=== PATIENT | male | born 1940 | race Caucasian/White ===

== ENCOUNTER 2024-09-10 10:27 | Emergency (ER) | payer MEDICARE, OTHER, SELFPAY ==
[2024-09-10 10:33] VITALS: BP 157/97
--- NOTE | 2024-09-10 10:41 | ED.GENMED ---
History of Present Illness
General
Chief Complaint: Crisis Evaluation
Time Seen by Provider: 09/10/24 10:41
History of Present Illness
History of Present Illness:
TIME OF INITIAL ENCOUNTER: 10:50 AM
HPI: Patient came in by [facility] ambulance from [facility]. There was report of suicidal ideation however the patient cannot clearly give me any meaningful history. As I am in the room all he wants to talk about is 'what is wrong with my
back?'. At times he has unintelligible speech. He also spat on himself while in the room. He reportedly has a history of schizoaffective disorder bipolar disorder.
EXAM:
GENERAL: The patient appears generally weak and somewhat disheveled
HEENT: Moist oral mucosa
CARDIOVASCULAR: No murmurs, normal heart rate, regular rhythm, No chest wall tenderness
PULMONARY: No respiratory distress, breath sounds are clear and equal
ABDOMEN: Soft with no peritoneal signs, no tenderness
NEUROLOGIC: Fair strength all extremities, no coordination deficits
PSYCHIATRIC: Bizarre affect, unintelligible speech at times, tangential thoughts
EXTREMITIES: Nontender, no edema, moves all extremities equally
SKIN: Some unroofed scabs noted to the upper back
NUMBER AND COMPLEXITY OF PROBLEMS ADDRESSED AT THE ENCOUNTER
� Chronic conditions affecting care: A-fib, high blood pressure, bipolar disorder, PTSD, schizoaffective disorder
� Acute Exacerbation and/or Progression of Chronic Illness: The timing of the symptoms of this presentation is unclear
� Differential Diagnosis includes: Possible suicidal ideation, exacerbation of/progression of mental illness
AMOUNT AND/OR COMPLEXITY OF DATA TO BE REVIEWED AND ANALYZED
� I performed an independent evaluation of and my interpretation is:
EKG:
CT:
X-rays:
Laboratory Studies: CBC and chemistry relatively unremarkable
Other:
� Review of other/old records: No old records available for review in [facility]
� Clinical information was obtained by an independent historian: Reviewed EMS report which shows the patient had relatively unremarkable vital signs with exception of mild hypertension
� Prescriptions/Medications Considered but not given:
� Further testing considered but not performed:
RISK OF COMPLICATIONS AND/OR MORBIDITY OR MORTALITY OF PATIENT MANAGEMENT
� Social determinants of health affecting care: Resides at [facility]
� Discussion with other providers: I spoke to crisis who spoke to [facility] who initially indicated the patient is near baseline. Crisis is still awaiting to hear back from nursing consultant at [facility].
� Escalation of care including admission/observation vs risk of discharge considered: The patient reportedly is near his baseline mental status. Labs unremarkable. He does not necessarily appear to be a threat to himself or
others.
ANY OTHER UPDATES:
2 PM: Crisis unable to reach [facility] any further for any additional conversation. The patient reportedly is near his baseline mental status. Planning to discharge back to [facility].
Phy Exam
Physical Exam
Physical Exam:
See HPI
Course
Orders/Labs/Results
Orders:
Orders
09/10/24 10:42
1:1 Observation - Suicide/ Violent Behavior As Directed
Crisis Consult Urgent
Reason for Consult: SI
09/10/24 11:21
ED Special Safety Observation ONCE
Observation level: One to Two
09/10/24 12:04
Basic Metabolic Panel Urgent
Complete Blood Count/With Diff Urgent
09/10/24 18:57
Olanzapine [Zyprexa] 2.5 mg PO NOW STA
Abnormal Lab Results
09/10/24
12:04
WBC 3.5 L 10^3/uL
(4.8-10.8)
RBC 3.84 L 10^6/uL
(4.70-6.10)
Hgb 11.0 L g/dL
(13.0-18.0)
Hct 34.7 L %
(39.0-52.0)
MCHC 31.7 L g/dL
(33.0-37.0)
RDW 16.4 H %
(11.5-14.5)
MPV 11.6 H fL
(7.4-10.4)
Absolute Lymphs (auto) 0.4 L 10^3/uL
(1.2-3.4)
Lymphocytes % 10.3 L %
(20.5-51.1)
Monocytes % 11.7 H %
(1.7-9.3)
Carbon Dioxide 32 H mmol/L
(22-30)
BUN 21 H mg/dl
(9-20)
09/10/24 12:04
09/10/24 12:04
Vital Signs
Initial and Last Documented VS:
Initial Vital Signs
Temp Pulse Resp BP Pulse Ox
37.0 C 89 18 157/97 96
09/10/24 10:33 09/10/24 10:33 09/10/24 10:33 09/10/24 10:33 09/10/24 10:33
Last Documented Vital Signs
Temp Pulse Resp BP Pulse Ox
37.0 C 89 18 157/97 96
09/10/24 10:33 09/10/24 10:33 09/10/24 10:33 09/10/24 10:33 09/10/24 10:33
*Critical Care Note
Total Time (30-74mins, 75-104mins- exclusive of procedures): Not Applicable
ED Attending Note
-
Portions of this chart may have been created with voice recognition software.� Occasional wrong word or��sound alike� substitutions may have occurred due to the inherent limitations of voice recognition software.
Discharge Plan
Departure
Patient Disposition: Home (Routine Discharge)
Date of Disposition: 09/10/24
Time of Disposition: 13:59
Patient with high blood pressure during this ER visit?: Yes
Discharge Problem:
Schizoaffective disorder
Instructions: BLOOD PRESSURE
Referrals:
Clyde Hardy, DO [Family Provider] -
Activity Restrictions/Additional Instructions:
Basic blood work is unremarkable. Return here if worse or other concerns.
Interventions
Interventions:
*Risk Screen - Suicide Last Done: 09/10/24 10:33
*General Assessment Last Done: 09/10/24 10:33
*Neglect/Abuse Screening Last Done: 09/10/24 10:33
*ED- Fall Risk Assessment Last Done: 09/10/24 20:53
*Nursing Disposition Last Done: 09/10/24 20:53
ED-Psychological Assessment Last Done: 09/10/24 12:15
Discharge Date and Time
Discharge Date/Time: 09/10/24 20:54
Print Language: ARABIC
--- NOTE | 2024-09-10 10:51 | EDRN ---
Pt cooperative and changed into paper scrubs, belongs given to security sitter.
[2024-09-10 12:28] LABS: % Basophils 0.6 % (0-2); % Eosinophils 3.2 % (0-6); % Lymphocytes 10.3 % (20.5-51.1); % Monocytes 11.7 % (1.7-9.3); % Neutrophils 74.2 % (42.2-75.2); Absolute Eosinophils 0.1 10^3/uL (0-0.7); Absolute Lymphocytes 0.4 10^3/uL (1.2-3.4); Absolute Monocytes 0.4 10^3/uL (0.1-0.6); Absolute Neutrophils 2.6 10^3/uL (1.4-6.5); Hematocrit 34.7 % (39.0-52.0); Mean Corp Hgb Conc. 31.7 g/dL (33.0-37.0); Mean Corpuscular Hgb 28.6 pg (27.0-31.0); Mean Corpuscular Volume 90.4 fL (80.0-94.0); Mean Platelet Volume 11.6 fL (7.4-10.4); Nucleated Red Blood Cells % 0 % (-); Platelet Count 146 10^3/uL (130-400); Red Blood Cell Count 3.84 10^6/uL (4.70-6.10); Red Cell Dist. Width 16.4 % (11.5-14.5); White Blood Cell Count 3.5 10^3/uL (4.8-10.8)
[2024-09-10 12:39] LABS: Blood Urea Nitrogen 21 mg/dl (9-20); Calcium 9.1 mg/dl (8.4-10.2); Carbon Dioxide 32 mmol/L (22-30); Chloride 101 mmol/L (98-107); Glucose 95 mg/dl (70-99); Potassium 3.7 mmol/L (3.5-5.1); Sodium 140 mmol/L (135-145); eGFR > 60.00
[2024-09-10] MEDS: ZYPREXA 2.5 MG PO (19:07)
== END 2024-09-10 20:54 ==
LOC: EMR 10:27
PROVIDERS: EMERGENCY PHYSICIAN Emergency Medicine; FAMILY PHYSICIAN Internal Medicine
DX: F25.9 Schizoaffective disorder, unspecified (principal); F31.9 Bipolar disorder, unspecified; I48.91 Unspecified atrial fibrillation; I10 Essential (primary) hypertension
CPT/HCPCS: 99283; 80048; 85025

== ENCOUNTER 2024-09-22 05:34 | Emergency (ER) | payer MEDICARE, OTHER, SELFPAY ==
[2024-09-22 05:37] VITALS: BP 135/86
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
[2024-09-22 07:33] VITALS: BP 133/69
[2024-09-22 08:10] LABS: Blood Urea Nitrogen 27 mg/dl (9-20); Calcium 8.8 mg/dl (8.4-10.2); Carbon Dioxide 34 mmol/L (22-30); Chloride 102 mmol/L (98-107); Estimated Creatinine Clearance 64 ml/min; Glucose 95 mg/dl (70-99); Potassium 4.1 mmol/L (3.5-5.1); Sodium 140 mmol/L (135-145); eGFR > 60.00
[2024-09-22 08:19] LABS: % Basophils 0.6 % (0-2); % Eosinophils 3.9 % (0-6); % Immature Granulocytes 0.3 % (0-0.5); % Monocytes 14.4 % (1.7-9.3); % Neutrophils 69.8 % (42.2-75.2); Absolute Eosinophils 0.1 10^3/uL (0-0.7); Absolute Lymphocytes 0.4 10^3/uL (1.2-3.4); Absolute Monocytes 0.5 10^3/uL (0.1-0.6); Absolute Neutrophils 2.5 10^3/uL (1.4-6.5); Hematocrit 31.2 % (39.0-52.0); Hemoglobin 10.2 g/dL (13.0-18.0); Mean Corp Hgb Conc. 32.7 g/dL (33.0-37.0); Mean Corpuscular Volume 88.6 fL (80.0-94.0); Mean Platelet Volume 12.6 fL (7.4-10.4); Nucleated Red Blood Cells % 0 % (-); Platelet Count 125 10^3/uL (130-400); Red Blood Cell Count 3.52 10^6/uL (4.70-6.10); Red Cell Dist. Width 16.3 % (11.5-14.5); White Blood Cell Count 3.6 10^3/uL (4.8-10.8)
[2024-09-22 10:11] LABS: Urine Albumin 1+ (Neg - Trace); Urine Bilirubin Negative (Negative); Urine Color Yellow; Urine Glucose Negative (Negative); Urine Ketone Negative (Negative); Urine Leukocyte Negative (Negative); Urine Nitrite Negative (Negative); Urine Occult Blood Negative (Negative); Urine Specific Gravity 1.015 (<1.030); Urine Urobilinogen 1+ (Neg - 1+)
[2024-09-22 10:13] LABS: Urine Character Clear (Clear)
[2024-09-22 10:23] LABS: COVID-19 Antigen Negative (Negative)
[2024-09-22 10:25] LABS: Urine Bacteria Few (Negative); Urine Red Blood Cell 0-2 /HPF (0-2); Urine Squamous Cell 0-2 /LPF (Few)
[2024-09-22 10:50] LABS: Benzodiazepines Positive (Negative)
[2024-09-22 10:51] LABS: Amphetamines Negative (Negative); Barbiturates Negative (Negative); Buprenorphine Negative (Negative); Cocaine Negative (Negative); Marijuana Negative (Negative); Methadone Negative (Negative); Methamphetamines Negative (Negative); Opiates Negative (Negative); Phencyclidine Negative (Negative); Tricyclic Antidepressants Negative (Negative)
[2024-09-22 11:38] LABS: Fentanyl, Urine Negative (Negative)
--- NOTE | 2024-09-22 13:30 | EDRN ---
Attempted to call RN to RN report to thrice. No answer.
Called and was transferred to 'the admissions line' and staff that answered that phone asked me to keep trying later.
Crisis office aware that attempts to give RN to RN report were initiated by this RN thrice.
--- NOTE | 2024-09-22 13:55 | EDRN ---
Attempted to call [facility] for the 4th time without success, no answer.
--- NOTE | 2024-09-22 13:58 | EDRN ---
called [facility] [place] line and was again transferred to Sheela PHIPPS, this RN was placed on hold and told to wait for an RN to give report to, no one answered, this RN hung up after 7 minutes on hold.
--- NOTE | 2024-09-22 14:04 | EDRN ---
RN to RN report officially given to Jazz PHIPPS.
[2024-09-22 15:21] VITALS: BP 132/75
== END 2024-09-22 16:20 ==
LOC: EMR 05:34
PROVIDERS: EMERGENCY PHYSICIAN Emergency Medicine
DX: F25.9 Schizoaffective disorder, unspecified (principal); R03.0 Elevated blood-pressure reading, without diagnosis of hypertension; I48.91 Unspecified atrial fibrillation; E78.00 Pure hypercholesterolemia, unspecified; J44.9 Chronic obstructive pulmonary disease, unspecified; D64.9 Anemia, unspecified
CPT/HCPCS: 99285; 70450; 71046; 80048; 80306; 80307; 81003; 81015; 85025; 87811; 93005

== ENCOUNTER 2024-10-08 22:49 | Emergency (ER) | payer MEDICARE, OTHER, SELFPAY ==
[2024-10-08 22:57] VITALS: BP 117/64
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
[2024-10-09 01:12] LABS: % Basophils 0.4 % (0-2); % Eosinophils 3.4 % (0-6); % Immature Granulocytes 1.3 % (0-0.5); % Lymphocytes 11.2 % (20.5-51.1); % Neutrophils 71.7 % (42.2-75.2); Absolute Eosinophils 0.2 10^3/uL (0-0.7); Absolute Immature Granulocytes 0.1 10^3/uL (0-0.05); Absolute Lymphocytes 0.6 10^3/uL (1.2-3.4); Absolute Monocytes 0.6 10^3/uL (0.1-0.6); Absolute Neutrophils 3.8 10^3/uL (1.4-6.5); Hematocrit 29.9 % (39.0-52.0); Hemoglobin 9.7 g/dL (13.0-18.0); Mean Corp Hgb Conc. 32.4 g/dL (33.0-37.0); Mean Corpuscular Hgb 29.3 pg (27.0-31.0); Mean Corpuscular Volume 90.3 fL (80.0-94.0); Mean Platelet Volume 12.2 fL (7.4-10.4); Nucleated Red Blood Cells % 0 % (-); Platelet Count 109 10^3/uL (130-400); Red Blood Cell Count 3.31 10^6/uL (4.70-6.10); Red Cell Dist. Width 16.2 % (11.5-14.5); White Blood Cell Count 5.3 10^3/uL (4.8-10.8)
[2024-10-09 01:24] LABS: ALT (SGPT) 19 U/L (0-50); AST (SGOT) 30 U/L (17-59); Albumin 3.3 g/dl (3.5-5.0); Alkaline Phosphatase 97 U/L (38-126); Blood Urea Nitrogen 26 mg/dl (9-20); Calcium 8.7 mg/dl (8.4-10.2); Carbon Dioxide 30 mmol/L (22-30); Chloride 107 mmol/L (98-107); Glucose 101 mg/dl (70-99); Potassium 3.9 mmol/L (3.5-5.1); Sodium 142 mmol/L (135-145); Total Bilirubin 0.7 mg/dl (0.2-1.3); eGFR > 60.00
[2024-10-09 03:15] VITALS: BP 127/70
[2024-10-09] MEDS: TYLENOL 1000 MG PO (05:44)
--- NOTE | 2024-10-09 07:04 | EDRN ---
Dr. Marr ordered a left arm sling, due to the circumstances and due to the pt being suicidal with verbal intent, this RN discussed with Dr. Marr not placing the left arm sling for suicide risk
[2024-10-09 08:00] VITALS: BP 146/81
--- NOTE | 2024-10-09 08:06 | EDRN ---
this RN spoke to the day shift provider Dr. Barraza and per Dr. Barraza a left shoulder immobilizer will be placed for the pt, this RN called [facility] and asked them to send a large shoulder immobilizer, when this RN received the shoulder immobilizer this
RN looked at the shoulder immobilizer and discussed it with Dr. Barraza and it was determined that placing the shoulder immobilizer would be safe for the pt given his suicide risk, [facility] send a [employer] shoulder immobilizer [id number], this RN
explained the use of the shoulder immobilizer to the pt and the pt was agreeable to wearing it, left shoulder immobilizer in place and secured
[2024-10-09 08:28] LABS: COVID-19 Antigen Negative (Negative)
[2024-10-09] MEDS: TYLENOL 650 MG PO (16:39)
--- NOTE | 2024-10-09 20:37 | CON.HOSP ---
Family Physician
-
Family Physician: Clyde Hardy, DO
Chief Complaint
-
Fall / Injury
History of Present Illness
Patient is an 84y M with PMH significant for PTSD, bipolar disorder, COPD and chronic anemia who presented to ED for evaluation after fall / injury at [place]. Patient states that he was angry that his roommate was using the bathroom. He attempted
to kick open the bathroom door and instead fell backwards off of his wheelchair and landed on his elbows. Patient did strike the back of his head on the floor as well. He denies any LOC.
He was evaluated in the ED for his injuries. He has sutures placed to small lacerations on each elbow (2 on the L and 1 on the R). X-rays showed a possible fracture of a L olecranon bone spur. No other significant fracture / dislocation / etc.
CT Head was unremarkable.
Patient stated that he would not return to his prior facility ([facility]). He threatened to harm himself or others if he were to return there.
He is currently in the ED awaiting psychiatric facility placement. Medicine service is consulted for management of patient's medical issues during his ED stay / pending placement.
Medical History
Past Medical History
Past Medical History: Reports Other
Additional Past Medical History:
PTSD
Bipolar Depression / Schizoaffective Disorder
Hypertension
Paroxysmal Atrial Fibrillation
COPD
Chronic Iron Deficiency Anemia
History of Lung Cancer
History of Prostate Cancer
Ambulatory Dysfunction
Past Surgical History: Reports Other
Additional Past Surgical History:
PPM Placement
Spinal Fusion
Social History
Living: Correction
Family History
Family History: Unable to Obtain
Allergies / Home Medications
Allergies reflects when Allergies were last updated in [facility].
Home Medications with original date entered in [employer] [facility]
Allergy/Medication List:
Allergies
Allergy/AdvReac Type Severity Reaction Status Date / Time
benztropine Allergy Unknown Verified 10/08/24 22:55
benzyl alcohol Allergy Unknown Verified 10/08/24 22:55
chlorpromazine Allergy Unknown Verified 10/08/24 22:55
divalproex sodium Allergy Unknown Verified 10/08/24 22:55
[From Depakote]
duloxetine Allergy Unknown Verified 10/08/24 22:55
haloperidol Allergy Unknown Verified 10/08/24 22:55
latex Allergy Unknown Verified 10/08/24 22:55
lithium Allergy Unknown Verified 10/09/24 20:39
Home Medications
Lorazepam Gel 1 applic topical Q8HPRN PRN anxiety/agitation 10/08/24
acetaminophen 325 mg tablet 650 mg PO Q6HPRN PRN fever>100.4/ mild pain 10/08/24
albuterol sulfate 90 mcg/actuation aerosol inhaler 2 puff inhalation R Q6HPRN PRN copd 10/08/24
atorvastatin 20 mg tablet 20 mg PO QPM 10/08/24
bisacodyl 10 mg rectal suppository 10 mg [place] DAILYPRN PRN if MOM is ineffective 10/08/24
finasteride 5 mg tablet 5 mg PO DAILY 10/08/24
furosemide 20 mg tablet 20 mg PO DAILY 10/08/24
magnesium hydroxide 400 mg/5 mL oral suspension (Milk of Magnesia) 30 ml PO DAILY PRN no BM in 3 days 10/08/24
polyethylene glycol 3350 17 gram oral powder packet 17 g PO DAILY 10/08/24
sodium phosphates 19 gram-7 gram/118 mL enema (Fleet Enema) 118 ml [place] DAILYPRN PRN bisacodyl ineffective 10/08/24
tamsulosin 0.4 mg capsule 0.4 mg PO DAILY 10/08/24
apixaban 5 mg tablet 5 mg PO BID 10/09/24
carboxymethylcellulose sodium 1 % eye drops (Artificial Tears (carboxymethylcellulose)) 2 drp BOTH EYES BID 10/09/24
cetirizine 10 mg tablet 10 mg PO DAILY 10/09/24
clotrimazole 1 % topical cream 1 applic topical BID candidiasis 10/09/24
ferrous sulfate 325 mg (65 mg iron) tablet 325 mg PO DAILY 10/09/24
fluphenazine decanoate 25 mg/mL injection solution 50 mg IM Q14D 10/09/24
guaifenesin 600 mg tablet, extended release 12 hr (Mucinex) 600 mg PO Q12H copd 10/09/24
lisinopril 5 mg tablet 5 mg PO DAILY 10/09/24
lorazepam 1 mg tablet (Ativan) 1 mg PO BID 10/09/24
melatonin 3 mg tablet 3 mg PO HS 10/09/24
olanzapine 2.5 mg tablet 2.5 mg PO QPM 10/09/24
Review of Systems
-
History Source: Patient
A 12 point Review of Systems was completed except as noted: Yes
Constitutional: Denies Fever
Respiratory: Denies Cough
Cardiac: Denies Chest Pain
Abdomen/GI: Denies Nausea or Vomiting
Musculoskeletal: Reports Joint Pain
Neurological: Denies Headache
Physical Exam
Vital Signs
Vital Signs
Temp Pulse Resp BP Pulse Ox
97.6 F 82 20 146/81 99
10/09/24 08:00 10/09/24 08:00 10/09/24 08:00 10/09/24 08:00 10/09/24 08:00
Physical Exam
General: Other (84y M in no acute distress.)
HEENT: Moist Mucous Membranes
Respiratory: Clear; Negative Wheezes, Rales or Rhonchi
Cardiac: S1/S2 and Regular Rhythm; Negative Murmur
GI: Soft, Non Tender, Non Distended and Normal Bowel Sounds
Musculoskeletal: No Clubbing and No Edema
Skin: Other (Small lacerations over each elbow with sutures in place. No active bleeding. ROM is intact in both UEs.)
Neuro: Awake and Alert
Psych: Negative Agitated
Laboratory Results
-
Laboratory Results
10/09/24 00:56
10/09/24 00:56
Total Bilirubin 0.7 mg/dl (0.2-1.3) 10/09/24 00:56
AST 30 U/L (17-59) 10/09/24 00:56
ALT 19 U/L (0-50) 10/09/24 00:56
Alkaline Phosphatase 97 U/L (38-126) 10/09/24 00:56
Impression / Plan
-
A/R: Patient is an 84y M with PMH significant for schizoaffective bipolar disorder, A-Fib and COPD who presented to ED from local [place] for evaluation of fall / injuries.
Fall at [place]
Bilateral Elbow Lacerations
Possible L Olecranon Bone Spur Fracture
- Continue supportive care.
- Sutures placed in the ED.
- Conservative management of possible bone spur fracture.
- Patient states that he is chronically non-ambulatory and confined to wheelchair at baseline.
Schizoaffective Bipolar Disorder
PTSD
- Patient refusing to return to [facility]. Awaiting placement at psychiatric facility.
- Resume usual psychotropic med regimen including Zyprexa and Ativan.
- PRN Ativan for any agitation / anxiety.
Paroxysmal Atrial Fibrillation
SSS s/p PPM
- Continue current CV med regimen including Eliquis for stroke risk reduction.
Benign Hypertension
- Continue lisinopril.
Chronic Iron Deficiency Anemia
- Continue iron supplementation.
- Monitor for any evidence of gross bleeding.
History of Prostate Cancer with LUTS
- Continue finasteride / tamsulosin.
- Bladder scan protocol.
Thank you for this consultation. Resume usual medications and monitor for any acute changes or new complaints.
Will sign off for now.
Please recall Medicine service with any additional questions or concerns.
[2024-10-09] MEDS: ZYPREXA 2.5 MG PO (21:12)
[2024-10-09] MEDS: MELATONIN 3 MG PO (22:18)
[2024-10-10 04:02] VITALS: BMI 19.2
[2024-10-10] MEDS: ELIQUIS 5 MG PO (08:36)
[2024-10-10] MEDS: ATIVAN 1 MG PO (08:36)
[2024-10-10] MEDS: PROSCAR 5 MG PO (08:36)
[2024-10-10] MEDS: FLOMAX 0.4 MG PO (08:36)
[2024-10-10] MEDS: LASIX 20 MG PO (08:37)
[2024-10-10] MEDS: FEOSOL 325 MG PO (08:37)
[2024-10-10] MEDS: ZYRTEC 10 MG PO (08:39)
[2024-10-10] MEDS: ZESTRIL 5 MG PO (08:39)
[2024-10-10] MEDS: TYLENOL 650 MG PO ×2 (08:40→15:28)
--- NOTE | 2024-10-10 09:33 | CM ---
Received call from Santa with [facility] ([phone]). Call placed to Crisis. They continue to place patient in a mental health facility. Santa will be out to speak with the patient.
--- NOTE | 2024-10-10 13:19 | W.PN.UPDATE ---
Update Note
Progress Note Update
psych consult canceled. patient seen by crisis and is going to [facility] as a voluntary patient later today.
[2024-10-10] MEDS: ZYPREXA 2.5 MG PO (19:35)
[2024-10-10] MEDS: LIPITOR 20 MG PO (19:35)
[2024-10-10 20:00] VITALS: BP 150/84
== END 2024-10-10 20:35 ==
LOC: EMR 22:49
PROVIDERS: Emergency Medicine; CONSULT PHYSICIAN Hospitalist; EMERGENCY PHYSICIAN Student in an Organized Health Care Education/Training Program; FAMILY PHYSICIAN Internal Medicine
DX: R45.851 Suicidal ideations (principal); S50.01XA Contusion of right elbow, initial encounter; S52.001A Unspecified fracture of upper end of right ulna, initial encounter for closed fracture; W06.XXXA Fall from bed, initial encounter
CPT/HCPCS: 99284; 12001; 70450; 73080; 80053; 85025; 87811; 93005